=== PATIENT | male | born 1965 | race Caucasian/White ===

== ENCOUNTER 2022-01-28 10:27 | Emergency (ER) | payer BC ==
[2022-01-28] MEDS ORDERED: Oxymetazoline 0.05% Nasal Spray 30 ML Bottle NAS ONE (10:57)
[2022-01-28 11:53] LABS: BLOOD UREA NITROGEN,BUN 23 mg/dL (7.0-18.0); CARBON DIOXIDE,CO2 26.5 mmol/L (21.0-32.0); CHLORIDE,CL 101 mmol/L (98-107); GLUCOSE RANDOM 130 mg/dL (74-106); POTASSIUM,K 3.9 mmol/L (3.5-5.1); SODIUM,NA 138 mmol/L (136-148)
== END 2022-01-28 13:30 | disposition home or self-care (01) ==
LOC: MW.ED 10:27
DX: R04.0 Epistaxis (principal); Z90.49 Acquired absence of other specified parts of digestive tract
CPT/HCPCS: 30901; 36415; 80053; 85025; 93005; 99283-25

== ENCOUNTER 2022-02-14 23:25 | Emergency (ER) | payer BC ==
[2022-02-14] MEDS ORDERED: Lidocaine 2% Viscous Solution 15 ML UD ONE (23:42)
[2022-02-15] MEDS ORDERED: amLODIPine 5 MG Tab PO ONE ×2 (00:14→01:02)
[2022-02-15] MEDS ORDERED: Cephalexin 500 MG Cap PO ONE (00:24)
[2022-02-15] MEDS ORDERED: Sodium Chloride 0.9% 10 ML Syringe FLUSH PRN (01:10)
[2022-02-15] MEDS ORDERED: Sodium Chloride 0.9% 2.5 ML Syringe FLUSH PRN (01:10)
[2022-02-15] MEDS ORDERED: Sodium Chloride 0.9% 1,000 ML IV ONE (01:10)
[2022-02-15 01:48] LABS: BLOOD UREA NITROGEN,BUN 25 mg/dL (7.0-18.0); CHLORIDE,CL 105 mmol/L (98-107); GLUCOSE RANDOM 149 mg/dL (74-106); POTASSIUM,K 3.8 mmol/L (3.5-5.1); SODIUM,NA 139 mmol/L (136-148)
== END 2022-02-15 02:47 | disposition home or self-care (01) ==
LOC: MW.ED 23:25
DX: R04.0 Epistaxis (principal); T46.1X5A Adverse effect of calcium-channel blockers, initial encounter; I10 Essential (primary) hypertension
CPT/HCPCS: 36415; 80053; 84484; 85025; 93005; 99283; A9270; J3490; J7030; 30901